=== PATIENT | female | born 2000 | race Caucasian/White ===

== ENCOUNTER → 2020-10-12 | Day surgery (SDC) | payer OTHER ==
[~2020-10-12] VITALS: Ht 170.2 cm; Wt 96.3 kg
[~2020-10-12] MED LIST: PEPCID 20MG TAB20 MG PO
[2020-10-12 10:25] VITALS: BP 127/75; PULSE 73; TEMP 98
[2020-10-12 10:50] VITALS: BP 115/47; PULSE 66; TEMP 98
--- NOTE | 2020-10-12 10:50 | NUR ---
PT TO CANTRALL 8 VIA CART FROM ENDO ROOM, WALKED TO CHAIR, NO C/O, CALL LIGHT IN REACH, TAKES APPLE JUICE, HELGA, GRANDFATHER NOW IN ROOM, SPEAKS WITH DAD ON PHONE
[2020-10-12 11:05] VITALS: BP 104/53; PULSE 69
[2020-10-12 11:20] VITALS: BP 102/68; PULSE 66
--- NOTE | 2020-10-12 11:20 | NUR ---
DR SAMSON SPEAK WITH PT. REVIEWED DISCHARGE INSTRUCTIONS WITH PT ON MODERATE SEDATION AND FOLLOWUP WITH VERBAL UNDERSTANDING. IV Jordan'ALINE INTAC. PT UP IN ROOM DRESSED AT 1150, DISCHARGED TO VEHICLE VIA W/C WITH GRANDFATHER
[2020-10-12 13:25] VITALS: BP 112/66; PULSE 73
== END ==
LOC: SDCO 08:47
DX: K92.1 Melena (principal); K92.2 Gastrointestinal hemorrhage, unspecified; K63.89 Other specified diseases of intestine; R19.7 Diarrhea, unspecified; K21.9 Gastro-esophageal reflux disease without esophagitis; K59.00 Constipation, unspecified; Z79.899 Other long term (current) drug therapy; Z20.822 Contact with and (suspected) exposure to COVID-19
CPT/HCPCS: J2704; J7120